=== PATIENT | female | born 1985 | race Caucasian/White ===

== ENCOUNTER 2023-06-12 03:47 | Day surgery (SDC) | payer OTHER ==
[2023-06-01 09:50] VITALS: BMI 30.7
[2023-06-12] MEDS ORDERED: ONDANSETRON 4 MG/2 ML VIAL IVPUSH PRN ×2 (10:48→13:07)
[2023-06-12] MEDS ORDERED: FENTANYL CITRATE/PF 50 MCG/ML VIAL ONE ×2 (10:56→11:09)
[2023-06-12] MEDS ORDERED: MIDAZOLAM HCL 2 MG/2 ML SINGLE DOSE VIAL ONE ×2 (10:56→11:10)
[2023-06-12] MEDS ORDERED: BUPIVACAINE HCL/PF 0.5% (5MG/ML) 10 ML VIAL ONE (11:08)
[2023-06-12] MEDS ORDERED: PROPOFOL 20 ML ONE ×2 (11:09→11:33)
[2023-06-12] MEDS ORDERED: metroNIDAZOLE 0.75% VAGINAL GEL 70 GM TUBE ONE (11:18)
[2023-06-12] MEDS: ceFAZolin SODIUM 1 GM VIAL IVPB ONE (11:23)
[2023-06-12] MEDS ORDERED: ePHEDrine SULFATE 50 MG/1 ML AMPULE ONE ×2 (12:19)
[2023-06-12] MEDS ORDERED: ceFAZolin SODIUM 1 GM VIAL ONE (12:53)
[2023-06-12] MEDS ORDERED: DEXAMETHASONE SOD PHOSPHATE 4 MG/1 ML VIAL ONE (12:53)
[2023-06-12] MEDS ORDERED: KETOROLAC TROMETHAMINE 30 MG/1 ML VIAL ONE (12:53)
[2023-06-12] MEDS ORDERED: ONDANSETRON 4 MG/2 ML VIAL ONE (12:53)
[2023-06-12] MEDS ORDERED: oxyCODONE HCL 5 MG TABLET PO PRN (13:07)
[2023-06-12] MEDS ORDERED: PROMETHAZINE HCL 25 MG/1 ML VIAL IVPB PRN (13:08)
[2023-06-12] MEDS ORDERED: IBUPROFEN 800 MG/8 ML IJ IVPB PRN (13:09)
[2023-06-12] MEDS ORDERED: ELECTROLYTE-148 SOLN 1,000 ML IV SCH (13:15)
[2023-06-12] MEDS ORDERED: LACTATED RINGERS SOLUTION 1,000 ML IV SCH (13:15)
[2023-06-12] MEDS: ACETAMINOPHEN 1000 MG/100 ML BAG IVPB ONE (13:15)
[2023-06-12] MEDS: HYDROmorphone *PCA* 10MG/50ML DISP.SYRIN PCA SCH (13:30)
[2023-06-12 14:09] LABS: HEMOGLOBIN 13.3 GM/dL (10.7-15.3); MCH 26.9 pg (25.7-33.7); MCHC 31.6 g/dl (32.0-36.0); MEAN CELL VOLUME 85.1 fl (80-96); MEAN PLT VOLUME 9.7 fl (7.5-11.1); PLATELET COUNT 183 10^3/uL (134-434); RBC 4.94 M/mm3 (3.60-5.2); RDW 14.3 % (11.6-15.6); WHITE BLOOD COUNT 12.9 K/mm3 (4.0-10.0)
[2023-06-12 16:21] VITALS: RESP 18
[2023-06-12] MEDS: CEFAZOLIN 2 GM in DEXTROSE 5%-WATER 100 ML IVPB SCH (17:35)
[2023-06-12] MEDS: IBUPROFEN 800 MG/8 ML IJ IVPB PRN (18:21)
[2023-06-12] MEDS: CEFAZOLIN SODIUM 2 GM in DEXTROSE 5%-WATER 100 ML IVPB SCH (18:22)
[2023-06-12] MEDS: ACETAMINOPHEN 1000 MG/100 ML BAG IVPB PRN (21:05)
[2023-06-12] MEDS: LACTATED RINGERS SOLUTION 1,000 ML IV SCH (21:42)
[2023-06-13] MEDS: CEFAZOLIN SODIUM 2 GM in DEXTROSE 5%-WATER 100 ML IVPB SCH (01:30)
[2023-06-13 08:43] LABS: BASO % 0.2 % (0-2.0); EOS % 0.1 % (0-4.5); HEMATOCRIT 38.5 % (32.4-45.2); LYMPH % 13.3 % (8-40); MCH 26.6 pg (25.7-33.7); MCHC 31.2 g/dl (32.0-36.0); MEAN CELL VOLUME 85.4 fl (80-96); MEAN PLT VOLUME 9.1 fl (7.5-11.1); MONO % 9.3 % (3.8-10.2); NEUT % 77.1 % (42.8-82.8); PLATELET COUNT 253 10^3/uL (134-434); RBC 4.51 M/mm3 (3.60-5.2); RDW 14.3 % (11.6-15.6); WHITE BLOOD COUNT 14.2 K/mm3 (4.0-10.0)
[2023-06-13] MEDS: ACETAMINOPHEN 325 MG TABLET (FP) PO PRN (09:13)
[2023-06-13] MEDS: IBUPROFEN 600 MG TABLET (FP) PO PRN (10:33)
[2023-06-13 11:31] VITALS: BP 100/64; PULSE 80; TEMP 98
== END 2023-06-13 13:40 | disposition home or self-care (01) ==
LOC: JASUSAT 03:47 → EDSTATUS 11:30 → J3W 15:27 → JASUSAT 06-13 13:40
PROVIDERS: ATTEND Obstetrics & Gynecology
PROC: 0UT77ZZ Resection of Bilateral Fallopian Tubes, Via Natural or Artificial Opening (ICD-10-PCS; 2023-06-12)
PROC: 0UT97ZZ Resection of Uterus, Via Natural or Artificial Opening (ICD-10-PCS; principal; 2023-06-12 11:00)
DX: D25.9 Leiomyoma of uterus, unspecified (principal); N72 Inflammatory disease of cervix uteri; N87.0 Mild cervical dysplasia
CPT/HCPCS: 36415; 81025; 85025; 85027; 86850; 86900; 86901; 88305-TC; 88307-TC; 94760; J0131